=== PATIENT | male | born 1980 | race Caucasian/White ===

== ENCOUNTER → 2021-11-08 | Outpatient (CLI) | payer BC | LOC: SJCVCIMAG 12:21 | PROVIDERS: ATTEND Internal Medicine | DX: R00.2 Palpitations (principal); R55 Syncope and collapse; R53.83 Other fatigue ==

== ENCOUNTER → 2021-12-02 | Outpatient (CLI) | payer BC | LOC: SJCVCIMAG 12:48 | PROVIDERS: ATTEND Internal Medicine | DX: R55 Syncope and collapse (principal); R00.2 Palpitations ==